=== PATIENT | male | born 1970 | race Hispanic/Latino ===

== ENCOUNTER 2023-04-25 13:11 | Emergency (ER) | payer BC ==
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
[2023-04-25] MEDS ORDERED: IBUPROFEN 400 MG TAB ONE (14:18)
[2023-04-25 14:28] VITALS: BP 147/76; TEMP 98.1; O2SAT 98
== END 2023-04-25 14:16 | disposition home or self-care (01) ==
LOC: ER 13:11
DX: S09.90XA Unspecified injury of head, initial encounter (principal); V49.40XA Driver injured in collision with unspecified motor vehicles in traffic accident, initial encounter; F17.210 Nicotine dependence, cigarettes, uncomplicated
CPT/HCPCS: 70450; 72125; 99284